=== PATIENT | male | born 1955 | race Caucasian/White ===

== ENCOUNTER 2019-11-28 20:17 | Emergency (ER) | payer MEDICARE, OTHER ==
[~2019-11-28] VITALS: Ht 182.9 cm; Wt 74.8 kg
--- NOTE | 2019-11-28 20:23 | NUR ---
[address] C/O R LEG SORE AND SWELLING. +FEVER, PT TO BED 12, -SOB, NAD NOTED, VSS, PENDING MD CANTU
--- NOTE | 2019-11-28 21:38 | NUR ---
PT REFUSED EKG, STATED THAT HE CANNOT LAY ON HIS BACK BECAUSE HE CANNOT UNBEND HIS KNEE.
[2019-11-28] MEDS: IV NS 0.9% 1,000 ML BAG IV ONE (21:46)
[2019-11-28] MEDS ORDERED: ACETAMINOPHEN ES 500 MG TABLET ONE (21:47)
[2019-11-28 21:50] LABS: BASOPHILS % (AUTO) 0.5 % (0.0-2.0); EOSINOPHILS % (AUTO) 0.1 % (0.0-6.0); HEMATOCRIT 33 % (39-51); HEMOGLOBIN 11.1 g/dL (13.5-17.5); LYMPHOCYTES # (AUTO) 0.9 /CMM (0.8-4.8); MEAN CORPUSCULAR HGB CONC 34 g/dl (31.0-36.0); MEAN CORPUSCULAR VOLUME 87 fL (80-96); MONOCYTES # (AUTO) 0.2 /CMM (0.1-1.30); MONOCYTES % (AUTO) 2.9 % (2.0-12.0); NEUTROPHILS # (AUTO) 5.4 /CMM (1.8-8.9); NEUTROPHILS % (AUTO) 82.5 % (43.0-81.0); PLATELET COUNT (AUTO) 209 /CMM (150-450); RED BLOOD CELL COUNT(AUTO) 3.84 MIL/uL (4.5-6.0); WHITE BLOOD COUNT (AUTO) 6.6 K/uL (4.3-11.0)
[2019-11-28 21:52] LABS: APPEARANCE,URINE Clear (CLEAR); BILIRUBIN,URINE Negative (NEGATIVE); BLOOD, URINE Negative Ery/uL (NEGATIVE); COLOR,URINE Yellow (YELLOW); KETONES,URINE Negative (NEGATIVE); LEUKOCYTE ESTERASE ,URINE Negative (NEGATIVE); NITRITE, URINE Negative (NEGATIVE); PROTEIN,URINE Negative (NEGATIVE); UGLUCOSE Negative (NEGATIVE); UROBILINOGEN,URINE 0.2 EU/dL (0.2)
[2019-11-28] MEDS: ACETAMINOPHEN ES 500 MG TABLET PO ONE (21:52)
[2019-11-28 22:05] LABS: CALCIUM, SERUM 7.8 mg/dL (8.5-10.1); POTASSIUM 3.4 mmol/L (3.5-5.1)
[2019-11-28 22:19] LABS: ALBUMIN 2.6 g/dL (3.4-5.0); BILIRUBIN,DIRECT 0.1 mg/dL (0.0-0.2); BILIRUBIN,TOTAL 0.4 mg/dL (0.2-1.0); TOTAL PROTEIN, SERUM 8.2 g/dL (6.4-8.2)
[2019-11-28 23:00] VITALS: BP 140/75
--- NOTE | 2019-11-28 23:40 | NUR ---
Patient discharged to home in stable condition. Written and verbal after care instructions given. Patient verbalizes understanding of instruction. IV removed. Catheter intact and site benign. Pressure and 4x4 applied to site. No bleeding noted.
== END 2019-11-28 23:47 | disposition home or self-care (01) ==
LOC: ER 20:19
DX: L03.116 Cellulitis of left lower limb (principal); Z59.0 Homelessness
CPT/HCPCS: 36415; 80048; 80076; 81001; 83605; 84145; 84484; 85025; 85730; 87040 ×2; 87086; 93005; 99284; J7030; 81000-TC